=== PATIENT | female | born 1995 | race African-American/Black ===

== ENCOUNTER 2018-04-30 16:13 | Emergency (ER) | payer OTHER ==
[2018-04-30 16:48] LABS: Hemoglobin 13.3 g/dL (12.0-16.0); Mean Corpuscular HGB CONC 31.6 g/dL (32.0-36.0); Mean Corpuscular Hemoglobin 26.8 pg (27.0-31.0); Mean Corpuscular Volume 84.9 fL (78.0-98.0); RBC Distribution Width 12.9 % (11.5-14.5); Red Blood Cell (RBC) Count 4.96 mill/uL (4.20-5.40); White Blood Cell (WBC) Count 11.3 thou/uL (4.8-10.8)
[2018-04-30 17:00] LABS: Bilirubin Negative (Negative); Blood, Urine Negative (Negative); Clarity CLOUDY (Clear); Glucose, Urine (Dipstick) Negative (Negative); Leukocyte Moderate (Negative); Nitrite Negative (Negative); Protein, Urine (Dipstick) Negative (Neg-Trace); Urobilinogen 0.2 mg/dL (0.2-1.0)
[2018-04-30 17:03] LABS: #Basophils 0.1 thou/uL (0.0-0.2); #Eosinphils 0.1 thou/uL (0.0-0.7); #Lymphocytes 2.1 thou/uL (1.20-3.40); #Neutrophils 8.1 thou/uL (1.40-6.50); %Basophils 0.7 % (0.0-1.0); %Eosinophils 0.7 % (0.0-10.0); %Lymphocytes 18.5 % (21.0-51.0); %Monocytes 8.5 % (0.0-10.0); %Neutrophils 71.6 % (42.0-75.0); Mean Platelet Volume 8.1 fL (7.4-10.4); Platelet Count 151 thou/uL (130-400)
[2018-04-30 17:03] LABS: Bacteria/HPF Rare-Few HPF (None Seen); Hyaline Casts/LPF 0-3 HYALINE CAST LPF (0-3 Hyaline); RBC/HPF 0-3 HPF (0-3)
--- NOTE | 2018-04-30 18:09 | ULT ---
PELVIC ULTRASOUND: 04/30/18 HISTORY: Positive test with bleeding today. Real time imaging of the pelvis was obtained transabdominally as well as with an endovaginal probe. T his shows an intrauterine gestational sac and yolk sac with questionable pole. The gestational sac measurements are 1.0 cm corresponding to 5 weeks, 6 days. What may be a pole has a crown to rump length measurement of 2 mm which would correspond to 5 weeks, 5 days. No definitive heart activity is seen at this time. The right adnexa is normal in appearance. The left ovary is not seen. DOPPLER EVALUATION WITH SPECTRAL ANALYSIS: Normal flow shown to the right adnexal region. IMPRESSION: Intrauterine gestational sac with a yolk sac and a questionable pole. What is felt to be a feta l pole is too small to accurately measure or definitely determine for viability. The gestational sac is in the fundus region of the uterus without any definite subchorionic bleed. Followup ultrasound wo uld be recommended as clinically indicated. POS: CHAPARRITA
== END 2018-04-30 18:36 | disposition home or self-care (01) ==
LOC: ERS 16:13
DX: O20.0 Threatened abortion (principal); O99.341 Other mental disorders complicating pregnancy, first trimester; Z3A.01 Less than 8 weeks gestation of pregnancy
CPT/HCPCS: 36415; 76856; 81003; 81015; 84702; 85025; 86900; 86901

== ENCOUNTER 2018-06-16 20:11 | Emergency (ER) | payer OTHER | END 2018-06-16 21:10 | disposition left against medical advice (07) | LOC: ERS 20:11 | DX: Z53.21 Procedure and treatment not carried out due to patient leaving prior to being seen by health care provider (principal) ==

== ENCOUNTER 2018-08-07 12:57 | Emergency (ER) | payer OTHER ==
[2018-08-07 14:00] LABS: Bilirubin Small (Negative); Blood, Urine Negative (Negative); Clarity CLOUDY (Clear); Glucose, Urine (Dipstick) Negative (Negative); Leukocyte Moderate (Negative); Nitrite Negative (Negative); Protein, Urine (Dipstick) 30 mg/dL (Neg-Trace)
[2018-08-07 14:05] LABS: Bacteria/HPF 1+ HPF (None Seen); Pathc Cast-AUWi Flag 1.63 (0-2.49); RBC/HPF 0-3 HPF (0-3); WBC/HPF 21-50 HPF (0-3)
[2018-08-07 14:08] LABS: Hyaline Casts/LPF 0-3 HYALINE CAST LPF (0-3 Hyaline)
--- NOTE | 2018-08-07 14:45 | ULT ---
Complete obstetrical ultrasound INDICATION: Pelvic pressure and abdominal pain TECHNIQUE: Grayscale, M-mode Doppler and Doppler images were obtained of the abdomen and pelvis to ev aluate the patient's known . COMPARISON: None. FINDINGS: Number of gestations: Single. Presentation: Cephalic. Placental location: Anterior Previa: No evidence for previa. Cervical length: 4.6 cm ZA: 15.7 cm. heart rate: 144 bpm. Biparietal diameter: 4.33cm, 19 weeks 1 day, 16th percentile. Head circumference: 16.93 cm, 19 weeks 4 days, 23rd percentile Abdominal circumference: 14.64 cm, 20 weeks 0 days, 42nd percentile Femoral length: 3.32cm, 20 weeks 3 days, 57th percentile Estimated weight: 329 g +/- 49g 0 lbs. 12 oz., 48th percentile SURVEY: Limited The average gestational age by ultrasound is 19 weeks 5 dayswith estimated due date of December 27, 2018. The estimated dates by clinical data is 20 weeks 0 dayswith estimated due date of December 25, 2018. IMPRESSION: 1. Single live intrauterine gestation with size and dates as above.
[2018-08-07 17:03] LABS: #Basophils 0.1 thou/uL (0.0-0.2); #Eosinphils 0.1 thou/uL (0.0-0.7); #Lymphocytes 2.2 thou/uL (1.20-3.40); #Monocytes 0.8 thou/uL (0.11-0.59); #Neutrophils 12.4 thou/uL (1.40-6.50); %Basophils 0.5 % (0.0-1.0); %Eosinophils 0.5 % (0.0-10.0); %Lymphocytes 14.3 % (21.0-51.0); %Monocytes 4.9 % (0.0-10.0); %Neutrophils 79.7 % (42.0-75.0); Hemoglobin 12.5 g/dL (12.0-16.0); Mean Corpuscular HGB CONC 33.9 g/dL (32.0-36.0); Mean Corpuscular Hemoglobin 27.3 pg (27.0-31.0); Mean Corpuscular Volume 80.7 fL (78.0-98.0); Mean Platelet Volume 8.1 fL (7.4-10.4); Platelet Count 147 thou/uL (130-400); RBC Distribution Width 12.7 % (11.5-14.5); Red Blood Cell (RBC) Count 4.58 mill/uL (4.20-5.40); White Blood Cell (WBC) Count 15.6 thou/uL (4.8-10.8)
[2018-08-07 17:28] LABS: Anion Gap 18 mmol/L (10-20); BUN (Urea Nitrogen) 8 mg/dL (7.0-18.7); Calc. Creatinine Clearance 0 mL/min (70-130); Calcium 9.8 mg/dL (7.8-10.44); Carbon Dioxide 20 mmol/L (22-29); Chloride 103 mmol/L (98-107); Estimated GFR-MDRD Greater than 90; Glucose 80 mg/dL (70-105); Potassium 3.5 mmol/L (3.5-5.1); Sodium 137 mmol/L (136-145)
== END 2018-08-07 17:47 | disposition home or self-care (01) ==
LOC: ERS 12:57
DX: O23.42 Unspecified infection of urinary tract in pregnancy, second trimester (principal); Z3A.19 19 weeks gestation of pregnancy
CPT/HCPCS: 36415; 76805; 80048; 81003; 81015; 85025; 87086

== ENCOUNTER 2018-10-06 11:11 | Day surgery (SDC) | payer OTHER ==
[2018-10-06 12:34] VITALS: BMI 45.8
--- NOTE | 2018-10-06 13:32 | PDOC.FPROB ---
FMR OB H&P: HPI - History of Present Illness Chief Complaint: Reduced movement History of Present Illness: Mrs. Luna is a 23 y/o @ 28wks gestation coming to L&D for reduced movement which she first noticed yesterday while at work. She states typically she feels a lot of movement during the day with getting up and down but yesterday it was minimal. 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 Mrs. Luna states there have been no other complications with her and she is only taking vitamins. Her first went without care but delivered a healthy baby at 37 weeks. She noted the only complication was a "ruptured placenta" but followed that it didn't require any intervention. Upon hooking the patient up on monitoring she noticed increased movement and stated she "felt much better". She denied any pain, cramping or discomfort. Denied any vaginal bleeding or discharge. She has no significant past medical history or surgical history outside of stating her blood pressure runs on the low side (90's/50's). She denies any tobacco or alcohol use. Primary Care Physician: Dr. Joyner FMR OB H&P: Current - Care : 2 Para: 1 Gestational age: 28wk Due date: Course/Complications: None - OB Labs Blood type: A RH: positive Antibody Screen: negative HIV: negative RPR: negative HepBsAg: negative FMR OB H&P: History - Past Medical History PMH: No Significant PMH - OB History OB History: 1 Prior w/ no care delivered early term at 37 wk only complication was "ruptured placenta" by patient but stated no intervention was required. Current has care from Dr. Joyner. 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 Joyner's showed negative results for HIV, Syphilis and Hepatitis screening. - Social History Social History: Denies any tobacco, alcohol or drug use. Works at [employer]. FMR OB H&P: Medications - Current Home Medications: Medication Instructions Recorded Confirmed Type Vitamin 1 tablet PO DAILY 10/06/18 10/06/18 History Allergies/Adverse Reactions: Allergies Allergy/AdvReac Type Severity Reaction Status Date / Time hydrocodone AdvReac Intermediate Emesis Verified 10/06/18 12:29 tramadol AdvReac Intermediate Emesis Verified 10/06/18 12:29 FMR OB H&P: ROS - Review of Systems General: denies: fever/chills, recent trauma Cardiovascular: denies: chest pain Respiratory: denies: shortness of breath Gastrointestinal: denies: abdominal pain, cramping, nausea, vomiting Neurologic: denies: syncope, loss of counsciousness, headache FMR OB H&P: Vital Signs - Heart Tones Baseline: 150 Variability: moderate Acceleration: present Deceleration: absent Category: category 1 [employer] contractions every: No Contractions FMR OB H&P: Physical Exam - Physical Exam General: NAD, awake, alert and oriented HEENT: normocephalic and atraumatic, conjunctiva clear, grossly normal vision, grossly normal hearing Neck: trachea midline Heart: RRR, normal S1/S2 General: no respiratory distress Abdomen: soft, fundus(cm) (Fundus measured at 29cm), non-tender FMR OB H&P: A/P - Problem List (1) Decreased movement Current Visit: Yes Status: Acute Code(s): O36.8190 - DECREASED MOVEMENTS, UNSP TRIMESTER, UNSP Qualifiers: Trimester: third trimester Qualified Code(s): O36.8130 - Decreased movements, third trimester, not applicable or unspecified Assessment and Plan: Mrs. Luna is a 23 y/o at 28 wks gestation with no significant PMH & non- complicated course who presented for decreased movement over the prior 2 days. Upon admission and being hooked up to the monitoring equipment she began to feel increased movement which reassured her greatly. Monitoring showed heart tones w/ baseline around 150 with moderate variability and multiple accels with no evidence of any decels. Given a lack of evidence in history, physical exam, or monitoring results for concern of labor or distress patient should be able to return to work today. Advised she keep her f/u appt with Dr. Joyner which is scheduled for next week already. Discussed with patient to reach out to her doctor with any further concerns. Disposition: Discharge home/work Discussion: Date/Time: 10/06/18 0645 This H&P was discussed with [] and [] who agree with the above documentation and plan.
--- NOTE | 2018-10-07 08:04 | PRG ---
DATE OF SERVICE: 10/06/2018 PRIMARY OB: Dr. Joyner. CHIEF COMPLAINT: Decreased movement. HISTORY OF PRESENT ILLNESS: The patient is a 23-year-old G2, P1 female with an intrauterine at 28 weeks gestation, who is presenting to Labor and Delivery for decreased movement. The patient reports that she has been experiencing less movement than she has expected. At work today, fetus has been much less active than usual and was concerned enough to come in to Labor and Delivery for evaluation. The patient reports that this change in behavior began about yesterday. The patient reports that the baby does move just not as active as had been. The patient denies any complications with this thus far. She sees Dr. Joyner on a regular basis for care. The patient denies headache, chest pain, shortness of breath, nausea, vomiting, chest pain, abdominal pain, cramping, syncope, loss of consciousness or headache. PAST MEDICAL HISTORY: Negative. PAST SURGICAL HISTORY: Negative. OB HISTORY: She has had 1 prior delivered at 37 weeks without care. SOCIAL HISTORY: Denies drug, alcohol, tobacco use. ALLERGIES: HYDROCODONE AND TRAMADOL. MEDICATIONS: vitamins. REVIEW OF SYSTEMS: Per HPI. PHYSICAL EXAMINATION: VITAL SIGNS: Blood pressure 92/51, heart rate of 74, respiratory rate of 18. GENERAL: She appears to be in no acute distress. She is alert, oriented, cooperative, and pleasant to interact with. HEAD: Normocephalic, atraumatic. LUNGS: Clear to auscultation bilaterally. HEART: Regular rate and rhythm. ABDOMEN: Soft. Fundal height is 29 cm and nontender to palpation. heart tracing shows the fetus with a baseline in the 140s with moderate long-term variability, positive 15 x 15 accelerations, no decelerations. Tocometer is without contractions. ASSESSMENT AND PLAN: The patient is a 23-year-old female with an intrauterine at 20 weeks gestation, presenting for decreased movement. Upon placement of the monitors, the patient reports that the baby began to move vigorously once again. Fetus has a reactive NST and category 1 tracing. The patient has been discharged home with reassurance and instructions to follow up with her primary OB as scheduled. Job ID: [id number]
== END 2018-10-06 13:22 | disposition home or self-care (01) ==
LOC: L&D/OP 11:11
PROVIDERS: ATTEND Obstetrics & Gynecology
DX: O36.8130 Decreased fetal movements, third trimester, not applicable or unspecified (principal); Z3A.28 28 weeks gestation of pregnancy; Z88.5 Allergy status to narcotic agent
CPT/HCPCS: 99282

== ENCOUNTER 2018-10-10 21:33 | Day surgery (SDC) | payer OTHER ==
[2018-10-10 22:12] VITALS: BP 87/51; TEMP 98.7; BMI 45.7
[2018-10-10] MEDS ORDERED: hydrALAZINE 20 MG/ML VIAL SLOW IVP PRN (22:45)
--- NOTE | 2018-10-12 13:55 | PRG ---
DATE OF SERVICE: 10/12/2018 PRIMARY OB: Luis Joyner DO, MS. CHIEF COMPLAINT: Vaginal bleeding. HISTORY OF PRESENT ILLNESS: The patient is a 23-year-old G2, P1 female with an intrauterine at 29 weeks' gestation, who presented to Labor and Delivery after experiencing some vaginal bleeding. The patient reports that this is attributed to being on her feet all day long at work, had more workload than usual as they were short staffed. The patient reports that her bleeding since noticing it when she wiped, has since significantly improved. The patient denies any uterine contractions, any loss of fluid, any falls, illness, fever, headache, chest pain, shortness of breath, nausea, vomiting, diarrhea, constipation, any new rashes, hip problems, knee problems, muscle weakness, urinary urgency. PAST MEDICAL HISTORY: Negative. PAST SURGICAL HISTORY: Negative. OB HISTORY: She has had 1 term delivery at 37 weeks. SOCIAL HISTORY: Denies drug, alcohol, or tobacco use. ALLERGIES: HYDROCODONE AND TRAMADOL. MEDICATIONS: vitamins. REVIEW OF SYSTEMS: Per HPI. PHYSICAL EXAMINATION: VITAL SIGNS: Blood pressure 103/55, heart rate of 70, saturating 100% on room air, respiratory rate 16, and temperature 98.7. GENERAL: She appears to be in no acute distress. She is alert and oriented, cooperative, and pleasant to interact with. HEENT: Head: Normocephalic, atraumatic. LUNGS: Clear to auscultation bilaterally. HEART: Has regular rate and rhythm. ABDOMEN: Gravid and soft, nontender. EXTREMITIES: Nontender, nonedematous. GENITOURINARY: Vulva is without masses, lesions, or erythema. Vagina is moist with some discharge. Cervix is closed visibly. She appears to have an area on her cervix that has a small area of clotted blood as this is the culprit for her bleeding. However, there is no active bleeding present and her discharge is off colored but not bright red or dark red. heart tracing shows a baseline in the 130s with moderate long-term variability. Positive accelerations. No decelerations. Tocometer shows a single contraction. VPIII shows positive findings for Gardnerella suggesting bacterial vaginosis. Bedside ultrasound was performed and no evidence of placenta in the vicinity of the cervix. Placenta appears to be fundal anterior ASSESSMENT AND PLAN: The patient is a 23-year-old G2, P1, with an intrauterine at 29 weeks', presenting for vaginal bleeding that spontaneously resolved. The culprit appears to be on the cervix itself. The patient attributes it to heavier workload today than usual. The patient has been discharged to home. Fetus has a reactive NST. Reassurance has been provided. The patient was discharged home prior to VPIII results. She will be notified by phone and a prescription has been sent to the pharmacy on file. She has been counseled to follow up with her primary OB as scheduled. Job ID: [id number]
== END 2018-10-10 22:45 | disposition home or self-care (01) ==
LOC: L&D/OP 21:33
PROVIDERS: ATTEND Obstetrics & Gynecology
DX: O46.90 Antepartum hemorrhage, unspecified, unspecified trimester (principal); O99.89 Other specified diseases and conditions complicating pregnancy, childbirth and the puerperium; R10.9 Unspecified abdominal pain; Z88.5 Allergy status to narcotic agent
CPT/HCPCS: 87480; 87510; 87660; 99285

== ENCOUNTER 2018-11-04 14:41 | Day surgery (SDC) | payer OTHER ==
[2018-11-04] MEDS ORDERED: hydrALAZINE 20 MG/ML VIAL SLOW IVP PRN (15:45)
--- NOTE | 2018-11-04 15:48 | PDOC.LDHP ---
Labor and Delivery H&P HPI: Patient of Dr Joyner Time: [id number] Location: L&D Triage B CC: Possible CTX at 32 weeks HPI: 23 yo last at 37 weeks with possible CTX x 1 day. no vb, no LOF, good FM. No recent sex. No fevers, no sxs. Review of Systems: complete ROS performed and as per HPI Current gestational age (weeks): 32 (2 days) Due date: 12/25/18 Dating criteria: last menstrual period Grav: 2 Para: 1 OB History Details: Last at 37 weeks Current complications: none Abnormal US findings: No Current medications: pre- vitamins Previous surgical history: none Allergies/Adverse Reactions: Allergies Allergy/AdvReac Type Severity Reaction Status Date / Time acetaminophen [From Vicodin] Allergy Verified 10/10/18 22:13 hydrocodone AdvReac Intermediate Emesis Verified 10/06/18 12:29 tramadol AdvReac Intermediate Emesis Verified 10/06/18 12:29 Social history: none - Physical Exam Vital signs reviewed and normal: yes (91/56 67 18 98.2) General: NAD Heart: RRR Lungs: CTAB Abdomen: gravid Extremeties: no edema FHT: category 1 Dish contractions every: rare CTX, maybe irritability - Assessment with no HX PTB at 32 weeks with possible CTX; no recent sex - Plan Plan: observation in L&D (I have ordered TVUS for cervix. If less than 2.5cm we will send FFN per protocol (ACOG); check Urine)
--- NOTE | 2018-11-04 16:17 | ULT ---
Obstetric sonogram Limited HISTORY: Threatened . 32 week gestation. FINDINGS: Evaluation of cervix was requested. The cervix is closed and 3.0 cm.
[2018-11-04 16:40] LABS: Bilirubin Negative (Negative); Blood, Urine 1+ (Negative); Clarity Clear (Clear); Glucose, Urine (Dipstick) Normal (Negative); Leukocyte 500 Leu/uL (Negative); Nitrite Negative (Negative); Protein, Urine (Dipstick) 20 mg/dL (Neg-Trace); Squamous Epithelial 0-3 HPF (0-3)
[2018-11-04 16:48] VITALS: BMI 46.3
[2018-11-04 16:48] LABS: Bacteria/HPF 1+ HPF (None Seen)
[2018-11-04 16:49] LABS: Mucous/LPF 1+ LPF (<2+); Urine Culture Reflex Yes Yes
--- NOTE | 2018-11-04 17:15 | PDOC.EVN ---
Event Note - Event Note Event Note: CX 3cm length by sono---normal UA with likely UTI; RX with macrobid 100mg po BID x 5 days
== END 2018-11-04 17:15 | disposition home health service (06) ==
LOC: L&D/OP 14:41
PROVIDERS: ATTEND Advanced Practice Midwife
DX: O47.03 False labor before 37 completed weeks of gestation, third trimester (principal); Z3A.32 32 weeks gestation of pregnancy; Z88.5 Allergy status to narcotic agent; Z88.8 Allergy status to other drugs, medicaments and biological substances
CPT/HCPCS: 59025; 76857; 81001; 87086; 99283

== ENCOUNTER 2018-11-15 10:13 | Day surgery (SDC) | payer OTHER ==
[2018-11-15 10:51] VITALS: BP 90/51; TEMP 98.6; BMI 46.3
[2018-11-15] MEDS ORDERED: hydrALAZINE 20 MG/ML VIAL SLOW IVP PRN (11:17)
--- NOTE | 2018-11-15 11:59 | PRG ---
DATE OF SERVICE: 11/15/2018 TIME OF SERVICE: 11:15. PRESENTING COMPLAINT: Mild dizziness and headache, 4/10, for 1 day. HISTORY OF PRESENT ILLNESS: Ms. Luna is a 23-year-old 2, para 1, at 34 weeks gestation, who sees Luis Joyner at [facility]. She is blood type A positive, antibody negative. Reports 2 days of headaches and dizziness. She reports she has worked 8 out of the last 8 days. She denies nausea, vomiting, scotoma. She reports an active fetus. 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 PAST MEDICAL HISTORY: Past history of occasional migraine headaches. PAST SURGICAL HISTORY: Denies. ALLERGIES: HYDROCODONE, VICODIN, AND TRAMADOL. MEDICATIONS: , vitamins, and iron. SOCIAL HISTORY: Denies tobacco, alcohol, or drug use. FAMILY HISTORY: Noncontributory. REVIEW OF SYSTEMS: Noncontributory. PHYSICAL EXAMINATION: GENERAL: Black female in no acute distress. VITAL SIGNS: Blood pressure 90/60, pulse 85, respirations 18, temperature 98.2. HEENT: Within normal limits to auscultation bilaterally. HEART: Regular rhythm. ABDOMEN: Soft and nontender. FHTs 140s, full, without lesions. : Vaginal exam deferred. Category I heart rate tracing. EXTREMITIES: No clubbing, cyanosis, or edema. DTRs 1+. NEURO: Within normal limits. Long conversation was carried out with the patient. She notices some improvement with Tylenol. I recommended considering caffeine as well to help with her headache. Also perhaps try to find a way to not work as many days in a row. The patient has appointment in [address] Joyner. IMPRESSION: Headache. No evidence of preeclampsia at 34 weeks gestation. PLAN: Discharge home, ER precautions. Keep scheduled followup with Dr. Joyner. Job ID: [id number]
== END 2018-11-15 11:25 | disposition home or self-care (01) ==
LOC: L&D/OP 10:13
PROVIDERS: ATTEND Obstetrics & Gynecology
DX: O99.89 Other specified diseases and conditions complicating pregnancy, childbirth and the puerperium (principal); R51 Headache; R42 Dizziness and giddiness; Z3A.34 34 weeks gestation of pregnancy; Z79.899 Other long term (current) drug therapy; Z88.5 Allergy status to narcotic agent
CPT/HCPCS: 99282

== ENCOUNTER 2018-12-21 05:30 | Inpatient (IN) | payer OTHER ==
--- NOTE | 2018-12-20 21:21 | PDOC.LDHP ---
Labor and Delivery H&P Chief complaint: scheduled induction (elective IOL) HPI: Pt is a @ 30 weeks who desires elective IOL. Current gestational age (weeks): 39 Due date: 12/28/18 Grav: 2 Para: 1 OB History Details: 2011 Current complications: none Abnormal US findings: No Current medications: pre- vitamins Previous surgical history: none Allergies/Adverse Reactions: Allergies Allergy/AdvReac Type Severity Reaction Status Date / Time hydrocodone AdvReac Intermediate Emesis Verified 11/15/18 10:48 tramadol AdvReac Intermediate Emesis Verified 11/15/18 10:48 Social history: none - Vaginal Exam cm dilated: 3 Effacement: 50% Station: -1 - OB Labs Blood type: A RH: positive Antibody Screen: negative HIV: negative RPR: negative HEPSAg: negative 1 hour GCT: negative GBS: negative Urine drug screen: negative Rubella: immune - Assessment L&D Assessment: elective induction at term A?P: IOL @ 39 weeks desired, plan for pitocin for labor induction. - Plan Plan: admit to L&D, labor augmentation if indicated, informed consent obtained, anesthesia consult for pain management -: IOL @ 39 weeks, AROM with clear fluid on admit exam. Pitocin infusion.
[2018-12-21] MEDS ORDERED: Ibuprofen 800 MG TAB PO PRN (06:23)
[2018-12-21] MEDS ORDERED: Lidocaine 1% (PF) 30 ML VIAL SC PRN (06:23)
[2018-12-21] MEDS ORDERED: NS / Oxytocin 40 units/1000ml 1,000 ML IV PRN (06:23)
[2018-12-21] MEDS ORDERED: NS w/ Oxytocin 10 units 500 ML IV SCH ×2 (06:23)
[2018-12-21] MEDS ORDERED: Butorphanol Tartrate 1 MG/ML VIAL SLOW IVP PRN (06:23)
[2018-12-21] MEDS ORDERED: Lactated Ringer's 1,000 ML IV SCH (06:23)
[2018-12-21] MEDS ORDERED: Promethazine HCl 25 MG/ML VIAL IM PRN ×2 (06:23→10:58)
[2018-12-21] MEDS ORDERED: hydrALAZINE 20 MG/ML VIAL SLOW IVP PRN ×2 (06:23→19:16)
[2018-12-21] MEDS ORDERED: Ondansetron PF 4 MG/2 ML Vial IVP PRN ×3 (06:23→19:16)
[2018-12-21 06:36] VITALS: BMI 46.8
[2018-12-21 07:33] LABS: Mean Corpuscular HGB CONC 32.2 g/dL (32.0-36.0); Mean Corpuscular Hemoglobin 22.9 pg (27.0-31.0); Mean Platelet Volume 11.7 fL (7.4-10.4); Platelet Count 187 thou/uL (130-400); Red Blood Cell (RBC) Count 4.36 mill/uL (4.20-5.40); White Blood Cell (WBC) Count 10.7 thou/uL (4.8-10.8)
[2018-12-21 08:16] LABS: HBSAg Index 0.17 S/CO (0-0.99); Hep B Surf Ag Non-Reactive S/CO (NonReactive); Syphilis Antibody Nonreactive (Nonreactive); Syphilis Antibody Index 0.06 S/CO (<1.00 Non-Reactive)
[2018-12-21] MEDS ORDERED: Fentanyl 4 mcg/Bup 0.1% Cadd 100 ML ONE (09:22)
[2018-12-21] MEDS ORDERED: Lactated Ringer's 500 ML IV PRN (10:58)
[2018-12-21] MEDS ORDERED: diphenhydrAMINE 50 MG/ML VIAL IVP PRN (10:58)
[2018-12-21] MEDS ORDERED: Naloxone HCl 0.4 mg/ml Vial IVP PRN ×2 (10:58)
[2018-12-21] MEDS ORDERED: ePHEDrine/0.9% NaCl/PF SYRINGE 50 mg/10 ml SLOW IVP PRN (10:58)
[2018-12-21] MEDS ORDERED: Acetaminophen 325 MG TAB PO PRN (10:58)
[2018-12-21] MEDS ORDERED: Fentanyl 4 mcg/Bupivacaine 0.1% Cassette 100 ML EPIDURAL SCH (11:00)
[2018-12-21] MEDS ORDERED: Communication Order-Pharmacy FS SCH (11:00)
[2018-12-21] MEDS ORDERED: Methylergonovine 0.2 MG/ML VIAL ONE (14:04)
--- NOTE | 2018-12-21 14:23 | PDOC.OPDEL ---
OB Operative/Delivery Note Delivery Dr/Surgeon: Ar Pre-Delivery Diagnosis: elective induction Procedure/Post Delivery Dx: spontaneous vaginal delivery Weeks gestation: 39 - Findings A Sex: female - 1 min: 9 - 5 min: 10 - Additional Findings/Plan Placenta delivered: spontaneous Repaired Obstetrical Laceration: periurethral (left and right) Estimated blood loss: 450ml Compilations/Other Findings: uterine atony relieved w pitocin, bimanual massage and methergine Post delivery plan: routine recovery
[2018-12-21 17:11] LABS: Hemoglobin 9.5 g/dL (12.0-16.0)
[2018-12-21] MEDS ORDERED: Bisacodyl 10 MG SUPP PR PRN (19:16)
[2018-12-21] MEDS ORDERED: Milk Of Magnesia 30 ML UDCUP PO PRN (19:16)
[2018-12-21] MEDS ORDERED: Benzocaine-Menthol 82.5 ML CAN TOP PRN (19:16)
[2018-12-21] MEDS ORDERED: NS / Oxytocin 40 units/1000ml 1,000 ML IV SCH (19:16)
[2018-12-21] MEDS ORDERED: diphenhydrAMINE 25 MG CAP PO PRN (19:16)
[2018-12-21] MEDS: Docusate Calcium (SURFAK) 240 MG CAP PO SCH (21:50)
[2018-12-21] MEDS: Ibuprofen 800 MG TAB PO SCH (21:50)
[2018-12-22] MEDS: Ibuprofen 800 MG TAB PO SCH ×3 (05:05→21:49)
[2018-12-22 06:07] LABS: Hemoglobin 9.5 g/dL (12.0-16.0); Mean Corpuscular HGB CONC 31.1 g/dL (32.0-36.0); Mean Corpuscular Hemoglobin 22.5 pg (27.0-31.0); Mean Corpuscular Volume 72.3 fL (78.0-98.0); Mean Platelet Volume 11.8 fL (7.4-10.4); Platelet Count 181 thou/uL (130-400); RBC Distribution Width 16.4 % (11.5-14.5); Red Blood Cell (RBC) Count 4.22 mill/uL (4.20-5.40); White Blood Cell (WBC) Count 14.2 thou/uL (4.8-10.8)
[2018-12-22] MEDS: Ferrous Sulfate 325 MG TAB PO SCH ×2 (08:27→18:39)
[2018-12-22] MEDS: Docusate Calcium (SURFAK) 240 MG CAP PO SCH ×2 (08:27→21:49)
[2018-12-22] MEDS: Prenatal Vitamin 1 TAB PO SCH (08:45)
[2018-12-22] MEDS ORDERED: Adacel (T-DAP) 0.5 ML SYRINGE IM ONE (09:00)
--- NOTE | 2018-12-22 09:15 | PDOC.PP ---
Post Progress Note Post Day #: 1 Subjective: doing well, baby latching, minimal lochia PO intake tolerated: yes Flatus: yes Ambulation: yes Vital Signs (12 hours) Temp Pulse Resp BP 12/22/18 05:30 98.1 F 62 20 88/52 L 12/22/18 01:30 97.9 F 71 20 98/52 L 12/21/18 21:49 86/52 L Weight Weight 240 lb - Physical Examination General: NAD Respiratory: non-labored breathing Abdominal: no distention Fundus firm & at: below umb Skin: no rash Neurological: no gross focal deficits Psychiatric: A&Ox3, normal affect Result Diagrams: 12/22/18 05:19 Additional Labs: Post Labs Blood Type A POSITIVE 12/21/18 07:22 Hep Bs Antigen Non-Reactive S/CO (NonReactive) 12/21/18 07:22 (1) 39 weeks gestation of Code(s): Z3A.39 - 39 WEEKS GESTATION OF Status: Acute (2) Vaginal delivery Code(s): O80 - ENCOUNTER FOR FULL-TERM UNCOMPLICATED DELIVERY Status: Acute - Assessment/Plan PPD1 doing well, no concerns. Planning for DC later today if baby DC.
[2018-12-22] MEDS ORDERED: Acetaminophen 500 MG TAB PO PRN (13:20)
[2018-12-23] MEDS: Ibuprofen 800 MG TAB PO SCH ×2 (05:06→14:19)
[2018-12-23 08:15] VITALS: TEMP 98.3
[2018-12-23] MEDS: Ferrous Sulfate 325 MG TAB PO SCH (08:56)
[2018-12-23] MEDS: Docusate Calcium (SURFAK) 240 MG CAP PO SCH (08:56)
[2018-12-23] MEDS: Prenatal Vitamin 1 TAB PO SCH (08:56)
--- NOTE | 2018-12-23 09:26 | PDOC.PP ---
Post Progress Note Post Day #: 2 Subjective: no concerns, doing well PO intake tolerated: yes Flatus: yes Ambulation: yes Vital Signs (12 hours) Temp Pulse Resp BP Pulse Ox 12/23/18 08:14 98.3 F 73 16 83/50 L 99 12/23/18 05:15 97.7 F 60 20 98/61 12/23/18 02:06 98.0 F 69 20 89/62 L Weight Weight 240 lb - Physical Examination General: NAD Respiratory: non-labored breathing Psychiatric: A&Ox3, normal affect Result Diagrams: 12/22/18 05:19 Additional Labs: Post Labs Blood Type A POSITIVE 12/21/18 07:22 Hep Bs Antigen Non-Reactive S/CO (NonReactive) 12/21/18 07:22 (1) 39 weeks gestation of Code(s): Z3A.39 - 39 WEEKS GESTATION OF Status: Acute (2) Vaginal delivery Code(s): O80 - ENCOUNTER FOR FULL-TERM UNCOMPLICATED DELIVERY Status: Acute - Assessment/Plan PPD 2 doing well, desires DC home.
[2018-12-23 11:11] VITALS: BP 99/57
== END 2018-12-23 14:50 | disposition home or self-care (01) | DRG 807 ==
LOC: L&D 05:57 → 3SW 19:02
PROVIDERS: ADMIT Obstetrics & Gynecology; ATTEND Obstetrics & Gynecology
PROC: 10907ZC Drainage of Amniotic Fluid, Therapeutic from Products of Conception, Via Natural or Artificial Opening (ICD-10-PCS; principal; 2018-12-21)
PROC: 10E0XZZ Delivery of Products of Conception, External Approach (ICD-10-PCS; 2018-12-21)
PROC: 3E033VJ Introduction of Other Hormone into Peripheral Vein, Percutaneous Approach (ICD-10-PCS; 2018-12-21)
PROC: 0UQMXZZ Repair Vulva, External Approach (ICD-10-PCS; 2018-12-21)
DX: O71.82 Other specified trauma to perineum and vulva (principal); Z37.0 Single live birth; Z3A.39 39 weeks gestation of pregnancy
CPT/HCPCS: 36415; 51702; 85027; 86780; 86850; 86900; 86901; 87340; J2210; J2590

== ENCOUNTER 2018-12-27 12:34 | Emergency (ER) | payer OTHER ==
--- NOTE | 2018-12-27 13:43 | ULT ---
EXAM: Left lower extremity venous Doppler PROVIDED CLINICAL HISTORY: Pain FINDINGS: Grayscale and color Doppler sonography with spectral analysis was performed of the left common femora l, femoral, popliteal, posterior tibial, greater saphenous and profunda femoral veins. The evaluated venous structures demonstrate a normal sonographic appearance. IMPRESSION: No sonographic evidence for left lower extremity deep venous thrombosis.
== END 2018-12-27 14:19 | disposition home or self-care (01) ==
LOC: ERS 12:34
DX: M79.662 Pain in left lower leg (principal)

== ENCOUNTER 2022-03-23 09:52 | Emergency (ER) | payer OTHER ==
[2022-03-23 11:53] LABS: #Basophils 0.1 thou/uL (0.0-0.2); #Eosinphils 0.1 thou/uL (0.0-0.7); #Lymphocytes 2.1 thou/uL (1.20-3.40); #Monocytes 0.5 thou/uL (0.11-0.59); #Neutrophils 6.4 thou/uL (1.40-6.50); %Basophils 1.6 % (0.0-1.0); %Eosinophils 0.6 % (0.0-10.0); %Lymphocytes 22.8 % (21.0-51.0); %Monocytes 5.7 % (0.0-10.0); %Neutrophils 69.3 % (42.0-75.0); Hemoglobin 13.4 g/dL (12.0-16.0); Mean Corpuscular HGB CONC 32.7 g/dL (32.0-36.0); Mean Corpuscular Hemoglobin 26.7 pg (27.0-31.0); Mean Corpuscular Volume 81.6 fl (78.0-98.0); Mean Platelet Volume 7.8 fL (7.4-10.4); Platelet Count 241 10x3/uL (130-400); RBC Distribution Width 12.4 % (11.5-14.5); Red Blood Cell (RBC) Count 5.01 mill/uL (4.20-5.40); White Blood Cell (WBC) Count 9.2 10x3/uL (4.8-10.8)
[2022-03-23 12:02] LABS: ALT (SGPT) 12 U/L (8-55); AST (SGOT) 11 U/L (5-34); Albumin 3.6 g/dL (3.5-5.0); Alkaline Phosphatase 102 U/L (40-110); Anion Gap 15 mmol/L (10-20); BUN (Urea Nitrogen) 5 mg/dL (7.0-18.7); Bilirubin, Total 0.5 mg/dL (0.2-1.2); Calc. Creatinine Clearance 0 mL/min (70-130); Calcium 9.4 mg/dL (7.8-10.44); Carbon Dioxide 18 mmol/L (22-29); Chloride 104 mmol/L (98-107); Estimated GFR 121; Globulin 3.9 g/dL (2.4-3.5); Glucose 86 mg/dL (70-105); Potassium 3.7 mmol/L (3.5-5.1); Protein, Total 7.5 g/dL (6.0-8.3); Sodium 133 mmol/L (136-145)
[2022-03-23 13:44] LABS: SARS-CoV-2 NAA Rapid Test Not Detected (NotDetected)
[2022-03-23] MEDS ORDERED: Heparin 25,000 units/D5W 500 ML ONE (13:50)
[2022-03-23 14:07] LABS: INR-International Normal Ratio 0.9; PTT 29.2 sec (22.9-36.1)
[2022-03-23] MEDS ORDERED: Heparin 10,000 UNITS/ 10 ML VIAL ONE (14:25)
== END 2022-03-23 15:39 | disposition short-term general hospital (02) ==
LOC: ERS 09:52
DX: I82.4Z3 Acute embolism and thrombosis of unspecified deep veins of distal lower extremity, bilateral (principal); Z20.822 Contact with and (suspected) exposure to COVID-19
CPT/HCPCS: 36415; 71046; 80053; 85025; 85379; 85610; 85730; 93005; 93970; 94760; 96361; 96365; 96376; J1644